=== PATIENT | female | born 1945 | race Caucasian/White ===

== ENCOUNTER → 2016-06-20 | Outpatient (CLI) | payer OTHER ==
[~2016-06-20] MED LIST: GADOBUTROL 10 ML VIAL IVP ONE
== END ==
LOC: FIMAGING 07:32
PROVIDERS: ATTEND Physical Medicine & Rehabilitation
DX: Z98.1 Arthrodesis status (principal); M50.221 Other cervical disc displacement at C4-C5 level; M47.892 Other spondylosis, cervical region
CPT/HCPCS: 72156; A9585

== ENCOUNTER → 2016-09-06 | Outpatient (CLI) | payer OTHER | LOC: CIMAGING 08:49 | PROVIDERS: ATTEND Internal Medicine | DX: R10.11 Right upper quadrant pain (principal) | CPT/HCPCS: 76700-PO ==

== ENCOUNTER → 2016-12-15 | Outpatient (CLI) | payer OTHER | LOC: CIMAGING 08:47 | PROVIDERS: ATTEND Internal Medicine | DX: R10.2 Pelvic and perineal pain (principal) | CPT/HCPCS: 76856-PO ==

== ENCOUNTER 2017-01-03 14:12 | Emergency (ER) | payer OTHER ==
[2017-01-03 14:25] VITALS: O2SAT 94
--- NOTE | 2017-01-03 14:49 | EDPHY ---
H & P Smoking Status: Never smoked <Zoila Mijares - Last Filed: 01/03/17 14:45> <Familia Cheng Martin - Last Filed: 01/03/17 15:18> Time Seen by Provider: 01/03/17 14:35 HPI/ROS: CHIEF COMPLAINT: Head injury HISTORY OF PRESENT ILLNESS: 71-year-old female presents after a fall with a headache. 3 days ago she tripped and fell over a rug. She fell forward and struck her forehead on a cement floor. Since then she has had a persistent headache, rated 4/10. Associated with pain on the sides of her neck and LBP. The back and neck pain are resolving. REVIEW OF SYSTEMS: Constitutional: No fever, no dizziness Eyes: No visual changes ENT: No dental injury Respiratory: No cough, no shortness of breath Cardiac: No chest pain Gastrointestinal: No nausea, no vomiting, no abdominal pain Genitourinary: No hematuria Musculoskeletal: No extremity pain or swelling Skin: No abrasions or lacerations Neurological: no numbness, no weakness Psychiatric: No depression (Zoila Mijares) Past Medical/Surgical History: Cervical fusion Lumbar fusion (Zoila Mijares) Social History: (Zoila Mijares) Physical Exam: General Appearance: Alert, pleasant Head: bilateral periorbital ecchymosis, mild tenderness over the nasal bridge Eyes: No conjunctival erythema, PERRLA, EOMI ENT, Mouth: no oral trauma Neck: lateral paraspinous tenderness, no midline tenderness, full range of motion without pain Respiratory: No chest wall tenderness, lungs clear bilaterally Cardiovascular: Regular rate and rhythm Abdomen: Abdomen is soft and nontender Skin: No lacerations, no abrasions Back: paraspinous lumbar tenderness, no midline T/L/S tenderness Extremities: Pelvis is stable and nontender Neurological: A&Ox3, normal motor function, normal sensory exam, cranial nerves intact Psychiatric: Mood and affect normal (Zoila Mijares) Constitutional: Initial Vital Signs Temperature (C) 36.6 C 01/03/17 14:22 Heart Rate 74 01/03/17 14:22 Respiratory Rate 18 01/03/17 14:22 Blood Pressure 163/94 H 01/03/17 14:22 O2 Sat (%) 94 01/03/17 14:22 O2 Delivery Mode Room Air Allergies/Adverse Reactions: dextromethorphan [Dextromethorphan] Allergy (Intermediate, Verified 05/16/09 07: 50) morphine [Morphine] Allergy (Intermediate, Verified 05/16/09 07:51) propoxyphene HCl [From Darvon] Allergy (Intermediate, Verified 05/16/09 07:47) Home Medications: Medication Instructions Recorded Cymbalta 05/16/09 Lisinopril 05/16/09 Mometasone Furoate Nasal [Nasonex] 2 sprays NASAL DAILY #1 mdi 05/16/09 Protonix 05/16/09 Provastatin 05/16/09 ASPIRIN 01/03/17 Amlodipine Besylate 01/03/17 Baclofen 01/03/17 Medical Decision Making <Zoila Mijares - Last Filed: 01/03/17 14:45> - Diagnostics Imaging: Discussed imaging studies w/ order caller Radiologist <Familia Cheng - Last Filed: 01/03/17 15:18> - Diagnostics Imaging Results: Imaging Impressions Head CT 01/03/17 14:45 Impression: There is no acute intracranial abnormality identified on this unenhanced CT evaluation. If there is further clinical concern regarding the patient's symptoms, MR imaging is suggested, if not otherwise contraindicated. Findings were discussed with Familia Cheng MD at 15:08, on 01/03/2017. ED Course/Re-evaluation: 1500 care assumed by me from Dr. Mijares pending CT scan of the brain. 1515 CT scan of the head is been interpreted by Dr. Harden. Has been interpreted as a normal study. The patient is comfortable. Will discharge with follow-up with primary care physician per Dr. cano instructions. (Familia Cheng) Departure <Zoila Mijares - Last Filed: 01/03/17 14:45> <Familia Cheng - Last Filed: 01/03/17 15:18> - Departure Disposition: Home, Routine, Self-Care Clinical Impression: Head injury Qualifiers: Encounter type: initial encounter Qualified Code(s): S09.90XA - Unspecified injury of head, initial encounter Neck strain Qualifiers: Encounter type: initial encounter Qualified Code(s): S16.1XXA - Strain of muscle, fascia and tendon at neck level, initial encounter Condition: Good Instructions: Head Injury (ED), Neck Pain (ED) Referrals: Elliott Park MD [Primary Care Provider] - As per Instructions
[2017-01-03 15:34] VITALS: BP 154/82; PULSE 72; RESP 16; TEMP 97.9
== END 2017-01-03 15:31 | disposition home or self-care (01) ==
LOC: CED 14:12
DX: S09.90XA Unspecified injury of head, initial encounter (principal); S16.1XXA Strain of muscle, fascia and tendon at neck level, initial encounter; W18.09XA Striking against other object with subsequent fall, initial encounter; Z79.82 Long term (current) use of aspirin
CPT/HCPCS: 70450-PO

== ENCOUNTER → 2017-04-28 | Outpatient (CLI) | payer OTHER | LOC: FIMAGING 15:13 | PROVIDERS: ATTEND Internal Medicine | DX: Z12.31 Encounter for screening mammogram for malignant neoplasm of breast (principal) | CPT/HCPCS: G0202 ==

== ENCOUNTER → 2017-08-16 | Outpatient (CLI) | payer OTHER | LOC: FIMAGING 10:05 | PROVIDERS: ATTEND Physical Medicine & Rehabilitation | DX: M99.9 Biomechanical lesion, unspecified (principal) | CPT/HCPCS: 78306; A9503 ==

== ENCOUNTER → 2018-08-23 | Outpatient (CLI) | payer OTHER | LOC: CLAB 10:10 | PROVIDERS: ATTEND Internal Medicine | DX: S89.92XA Unspecified injury of left lower leg, initial encounter (principal); M79.89 Other specified soft tissue disorders | CPT/HCPCS: 73564-PO ==

== ENCOUNTER → 2018-10-21 | Outpatient (CLI) | payer OTHER | LOC: CIMAGING 15:33 ==